=== PATIENT | female | born 1980 | race Caucasian/White ===

== ENCOUNTER → 2021-02-25 | Day surgery (SDC) | payer OTHER ==
[2021-02-22 12:13] VITALS: BP 158/90
[~2021-02-25] VITALS: Ht 162.5 cm; Wt 63.0 kg
[~2021-02-25] MED LIST: AMOXICILLIN500 MG PO; ATIVAN1 MG PO; CIPRO XR500 MG PO; CLARITIN10 MG PO; FLAGYL500 MG; MOTRIN800 MG PO; MULTI FOR HER1 EACH PO; NKHM; VICODIN 5/500 505 MG PO; WOMEN'S MULTIVI1 TAB PO; XARELTO10 MG PO; ZITHROMAX Z PA250 MG PO
[2021-02-25 06:45] VITALS: BP 118/76
[2021-02-25 08:01] VITALS: BP 134/86
[2021-02-25 08:16] VITALS: BP 145/88
[2021-02-25 08:31] VITALS: BP 150/90
== END | disposition home or self-care (01) ==
LOC: SDC 02-22 11:00
PROVIDERS: ATTEND Podiatrist
DX: S82.831A Other fracture of upper and lower end of right fibula, initial encounter for closed fracture (principal); F32.9 Major depressive disorder, single episode, unspecified; G43.909 Migraine, unspecified, not intractable, without status migrainosus; X50.0XXA Overexertion from strenuous movement or load, initial encounter; X50.9XXA Other and unspecified overexertion or strenuous movements or postures, initial encounter; Y93.89 Activity, other specified; Y92.89 Other specified places as the place of occurrence of the external cause; Y99.8 Other external cause status; Z20.822 Contact with and (suspected) exposure to COVID-19

== ENCOUNTER 2024-10-24 12:08 | Emergency (ER) | payer OTHER ==
[~2024-10-24] VITALS: Wt 66.2 kg
[2024-10-24 12:18] VITALS: BP 163/92
[2024-10-24] MEDS ORDERED: Bacitracin Zinc 14 GM TUBE T ONE (12:50)
== END 2024-10-24 13:47 | disposition home or self-care (01) ==
LOC: ED 12:08
DX: S09.93XA Unspecified injury of face, initial encounter (principal); Z79.899 Other long term (current) drug therapy; Z98.890 Other specified postprocedural states; Z90.89 Acquired absence of other organs; X58.XXXA Exposure to other specified factors, initial encounter; Y93.89 Activity, other specified; Y92.89 Other specified places as the place of occurrence of the external cause; Y99.8 Other external cause status